=== PATIENT | male | born 1960 | race Two or more races ===

== ENCOUNTER 2024-06-01 13:59 | Inpatient (IN) | payer OTHER ==
[~2024-06-01] VITALS: Ht 162.6 cm; Wt 61.7 kg
[2024-06-01 14:55] LABS: BASOPHILS # (AUTO) 0.2 K/uL (0.0-0.2); BASOPHILS % (AUTO) 3.2 % (0.0-2.0); EOSINOPHILS # (AUTO) 0.4 K/uL (0.0-0.7); EOSINOPHILS % (AUTO) 6.4 % (0.0-6.0); HEMATOCRIT 38 % (39-51); HEMOGLOBIN 12.8 g/dL (13.5-17.5); MEAN CORPUSCULAR HEMOGLOBIN 30 PG (26.0-33.0); MEAN CORPUSCULAR HGB CONC 34 g/dl (31.0-36.0); MEAN CORPUSCULAR VOLUME 88 fL (80-96); MONOCYTES # (AUTO) 0.5 K/uL (0.1-1.30); MONOCYTES % (AUTO) 8.6 % (2.0-12.0); NEUTROPHILS # (AUTO) 3.6 K/uL (1.8-8.9); NEUTROPHILS % (AUTO) 64.8 % (43.0-81.0); PLATELET COUNT (AUTO) 241 K/uL (150-450); RED BLOOD CELL COUNT(AUTO) 4.32 MIL/uL (4.5-6.0); RED CELL DISTRIBUTION WIDTH 15.1 % (11.5-15.0); WHITE BLOOD COUNT (AUTO) 5.6 K/uL (4.3-11.0)
[2024-06-01 15:09] LABS: APPEARANCE,URINE CLEAR (CLEAR); BILIRUBIN,URINE 3+ (NEGATIVE); BLOOD, URINE TRACE-INTA Ery/uL (NEGATIVE); COLOR,URINE YELLOW (YELLOW); KETONES,URINE NEGATIVE (NEGATIVE); LEUKOCYTE ESTERASE ,URINE NEGATIVE (NEGATIVE); NITRITE, URINE NEGATIVE (NEGATIVE); PH,URINE 5.5 (5.0-8.0); PROTEIN,URINE 2+ mg/dl (NEGATIVE); UGLUCOSE 3+ mg/dL (NEGATIVE); UROBILINOGEN,URINE 0.2 EU/dL (0.2)
[2024-06-01 15:16] LABS: ALBUMIN 3.4 g/dL (3.4-5.0); BILIRUBIN,TOTAL 10.8 mg/dL (0.2-1.0); CALCIUM, SERUM 9.5 mg/dL (8.5-10.1); CREATININE 1.9 mg/dL (0.6-1.3); LACTIC ACID 0.6 mmol/L (0.4-2.0); TOTAL PROTEIN, SERUM 8.1 g/dL (6.4-8.2)
[2024-06-01 15:27] LABS: INR 0.97 (0.91-1.10); PARTIAL THROMBOPLASTIN TIME 25.5 SEC (24.3-34.3); PROTHROMBIN TIME 10.3 SECS (9.2-11.1)
[2024-06-01 16:16] LABS: ADD URINE CULTURE NO; BACTERIA,URINE 1+ /HPF (None Seen); RBC,URINE 0-2 /HPF (0-2); SQUAMOUS EPITHELIAL CELL,UR Rare /HPF (None Seen); WBC,URINE NONE SEEN /HPF (0-3)
[2024-06-01] MEDS ORDERED: FERR325T28 GT (16:50)
[2024-06-01] MEDS ORDERED: GLIM4TAB37 PO (16:50)
[2024-06-01] MEDS ORDERED: AMLO5TAB4 PO (16:50)
[2024-06-01] MEDS ORDERED: MULT-754 PO (16:50)
[2024-06-01] MEDS ORDERED: DAPA10TA PO (16:50)
[2024-06-01] MEDS ORDERED: CHOL100062 PO (16:50)
[2024-06-01] MEDS ORDERED: IOHEXOL-300 100 ML VIAL IV ONE (17:06)
[2024-06-01] MEDS ORDERED: IV NS 0.9% 250 ML IV ONE (17:06)
[2024-06-01 22:30] VITALS: BP 145/89; TEMP 97.5; O2SAT 96
[2024-06-01] MEDS ORDERED: Z GUARD REMEDY 4 OZ OINT TP PRN (22:30)
[2024-06-01] MEDS: BLOOD SUGAR DIAGNOSTIC 1 EACH STRIP IN SCH (23:30)
[2024-06-01] MEDS: ONDANSETRON HCL/PF 4 MG/2 ML VIAL IVP PRN (23:30)
[2024-06-01] MEDS ORDERED: DEXTROSE 50%-WATER 50 ML DISP.SYRIN IV PRN (23:30)
[2024-06-01] MEDS: IV NS 0.9% 1,000 ML IV PRN (23:30)
[2024-06-02 00:01] VITALS: BP 152/85; TEMP 97.9; O2SAT 97
[2024-06-02] MEDS: INSULIN REGULAR, HUMAN 100 UNIT/ML 3 ML VIAL SQ PRN (00:20)
[2024-06-02 04:06] VITALS: BP 119/75; TEMP 98.2; O2SAT 96
[2024-06-02 06:24] LABS: BASOPHILS # (AUTO) 0.1 K/uL (0.0-0.2); BASOPHILS % (AUTO) 1.5 % (0.0-2.0); EOSINOPHILS # (AUTO) 0.3 K/uL (0.0-0.7); EOSINOPHILS % (AUTO) 5.5 % (0.0-6.0); HEMATOCRIT 35 % (39-51); HEMOGLOBIN 11.8 g/dL (13.5-17.5); LYMPHOCYTES # (AUTO) 0.7 K/uL (0.8-4.8); LYMPHOCYTES % (AUTO) 12.9 % (20.0-44.0); MEAN CORPUSCULAR HEMOGLOBIN 29 PG (26.0-33.0); MEAN CORPUSCULAR HGB CONC 34 g/dl (31.0-36.0); MEAN CORPUSCULAR VOLUME 88 fL (80-96); MONOCYTES # (AUTO) 0.4 K/uL (0.1-1.30); MONOCYTES % (AUTO) 8.7 % (2.0-12.0); NEUTROPHILS # (AUTO) 3.7 K/uL (1.8-8.9); NEUTROPHILS % (AUTO) 71.4 % (43.0-81.0); PLATELET COUNT (AUTO) 207 K/uL (150-450); RED CELL DISTRIBUTION WIDTH 15.3 % (11.5-15.0); WHITE BLOOD COUNT (AUTO) 5.2 K/uL (4.3-11.0)
[2024-06-02 06:57] LABS: CHOLESTEROL 230 mg/dL (<200); HDL CHOLESTEROL 18 mg/dL (40-60); LDL 146 mg/dL (0-99); TRIGLYCERIDES 371 mg/dL (30-150)
[2024-06-02 07:04] LABS: ALANINE AMINOTRANSFERASE 355 U/L (12-78); ALBUMIN 3.1 g/dL (3.4-5.0); ALKALINE PHOSPHATASE 444 U/L (46-116); AMYLASE 220 U/L (25-115); ASPARTATE AMINOTRANSFERASE 149 U/L (15-37); BILIRUBIN,DIRECT 8.4 mg/dL (0.0-0.2); BILIRUBIN,TOTAL 10.4 mg/dL (0.2-1.0); CALCIUM, SERUM 9.2 mg/dL (8.5-10.1); CARBON DIOXIDE 24 mmol/L (21-32); CHLORIDE 106 mmol/L (98-107); CREATININE 1.7 mg/dL (0.6-1.3); GLUCOSE 234 mg/dL (74-106); LIPASE 318 U/L (16-77); MAGNESIUM 2.7 mg/dL (1.8-2.4); NT-PRO BNP 206 pg/mL (0-125); PHOSPHORUS 4.3 mg/dL (2.5-4.9); SODIUM SERUM 141 mmol/L (136-145); TOTAL PROTEIN, SERUM 7.3 g/dL (6.4-8.2); UREA NITROGEN, BLOOD 39 mg/dL (7-18)
[2024-06-02 08:00] VITALS: BP 148/88; TEMP 98.2; O2SAT 98
[2024-06-02] MEDS: PANTOPRAZOLE 40 MG VIAL IV SCH (08:56)
[2024-06-02] MEDS: IV NS 0.9% 1,000 ML IV PRN (15:18)
[2024-06-02 16:00] VITALS: BP 159/83; TEMP 98.2; O2SAT 97
[2024-06-02 20:00] VITALS: BP 160/87; TEMP 97.7; O2SAT 97
[2024-06-03] VITALS (7 sets, daily range): BP systolic 126–168; BP diastolic 78–91; TEMP 97.7–97.9; O2SAT 94–98
[2024-06-03 07:21] LABS: BASOPHILS # (AUTO) 0.1 K/uL (0.0-0.2); BASOPHILS % (AUTO) 2.1 % (0.0-2.0); EOSINOPHILS # (AUTO) 0.4 K/uL (0.0-0.7); EOSINOPHILS % (AUTO) 8.5 % (0.0-6.0); HEMATOCRIT 34 % (39-51); HEMOGLOBIN 11.1 g/dL (13.5-17.5); LYMPHOCYTES # (AUTO) 0.7 K/uL (0.8-4.8); MEAN CORPUSCULAR HEMOGLOBIN 29 PG (26.0-33.0); MEAN CORPUSCULAR HGB CONC 33 g/dl (31.0-36.0); MEAN CORPUSCULAR VOLUME 88 fL (80-96); MONOCYTES # (AUTO) 0.4 K/uL (0.1-1.30); MONOCYTES % (AUTO) 9.5 % (2.0-12.0); NEUTROPHILS # (AUTO) 2.7 K/uL (1.8-8.9); NEUTROPHILS % (AUTO) 62.9 % (43.0-81.0); PLATELET COUNT (AUTO) 199 K/uL (150-450); RED BLOOD CELL COUNT(AUTO) 3.84 MIL/uL (4.5-6.0); RED CELL DISTRIBUTION WIDTH 15.3 % (11.5-15.0); WHITE BLOOD COUNT (AUTO) 4.2 K/uL (4.3-11.0)
[2024-06-03 08:31] LABS: ALBUMIN 2.7 g/dL (3.4-5.0); BILIRUBIN,TOTAL 10.4 mg/dL (0.2-1.0); CALCIUM, SERUM 8.8 mg/dL (8.5-10.1); CREATININE 1.5 mg/dL (0.6-1.3); MAGNESIUM 2.5 mg/dL (1.8-2.4); PHOSPHORUS 3.7 mg/dL (2.5-4.9); POTASSIUM 3.9 mmol/L (3.5-5.1); TOTAL PROTEIN, SERUM 6.6 g/dL (6.4-8.2)
[2024-06-03 09:17] LABS: THYROID STIMULATING HORMONE 1.91 uIU/mL (0.358-3.74)
[2024-06-03] MEDS ORDERED: DIATR MEGLU/DIATRIZOATE SODIUM 30 ML BOTTLE (GASTROGRAPHIN) ONE (11:20)
[2024-06-03] MEDS: METOPROLOL TARTRATE 25 MG TABLET PO SCH (14:30)
[2024-06-04] VITALS: BP 139/76; TEMP 97.9; O2SAT 97
[2024-06-04 06:37] LABS: BASOPHILS # (AUTO) 0.1 K/uL (0.0-0.2); BASOPHILS % (AUTO) 2.1 % (0.0-2.0); EOSINOPHILS # (AUTO) 0.4 K/uL (0.0-0.7); EOSINOPHILS % (AUTO) 8.6 % (0.0-6.0); HEMATOCRIT 33 % (39-51); LYMPHOCYTES # (AUTO) 0.8 K/uL (0.8-4.8); LYMPHOCYTES % (AUTO) 18.4 % (20.0-44.0); MEAN CORPUSCULAR HEMOGLOBIN 29 PG (26.0-33.0); MEAN CORPUSCULAR HGB CONC 33 g/dl (31.0-36.0); MEAN CORPUSCULAR VOLUME 88 fL (80-96); MONOCYTES # (AUTO) 0.5 K/uL (0.1-1.30); MONOCYTES % (AUTO) 10.5 % (2.0-12.0); NEUTROPHILS # (AUTO) 2.8 K/uL (1.8-8.9); NEUTROPHILS % (AUTO) 60.4 % (43.0-81.0); PLATELET COUNT (AUTO) 192 K/uL (150-450); RED BLOOD CELL COUNT(AUTO) 3.77 MIL/uL (4.5-6.0); RED CELL DISTRIBUTION WIDTH 15.7 % (11.5-15.0); WHITE BLOOD COUNT (AUTO) 4.6 K/uL (4.3-11.0)
[2024-06-04 06:48] LABS: ALBUMIN 2.5 g/dL (3.4-5.0); BILIRUBIN,TOTAL 10.9 mg/dL (0.2-1.0); CALCIUM, SERUM 8.7 mg/dL (8.5-10.1); CREATININE 1.3 mg/dL (0.6-1.3); MAGNESIUM 2.2 mg/dL (1.8-2.4); PHOSPHORUS 2.5 mg/dL (2.5-4.9); POTASSIUM 4.2 mmol/L (3.5-5.1); TOTAL PROTEIN, SERUM 6.3 g/dL (6.4-8.2)
[2024-06-04 08:29] VITALS: BP 140/64; TEMP 98.4; O2SAT 98
[2024-06-04] MEDS: PANTOPRAZOLE 40 MG TABLET.DR PO SCH (09:30)
[2024-06-04] MEDS: TRIAMCINOLONE ACETONIDE 0.1% CR 15 GM TUBE TP SCH (11:16)
[2024-06-04 12:08] VITALS: BP 164/90; TEMP 98.1; O2SAT 99
[2024-06-04] MEDS ORDERED: IOHEXOL-300 100 ML VIAL IV ONE (13:43)
[2024-06-04] MEDS ORDERED: IV NS 0.9% 250 ML IV ONE (13:43)
[2024-06-04 16:15] VITALS: BP 157/84; TEMP 97.5; O2SAT 99
[2024-06-04 20:27] VITALS: BP 146/81; TEMP 97.5; O2SAT 98
[2024-06-04 21:43] VITALS: BP 146/81
[2024-06-04] MEDS ORDERED: ONDA4VIA23 IVP (23:13)
[2024-06-04] MEDS ORDERED: METO25TA20 PO (23:13)
[2024-06-04] MEDS ORDERED: PANT40TA49 PO (23:13)
[2024-06-04] MEDS ORDERED: GADOTERATE MEGLUMINE 10 MMOL/20 ML VIAL IV ONE (23:59)
[2024-06-05 07:09] LABS: HEPATITIS B SURFACE AB Reactive (.)
[2024-06-05 08:09] LABS: AFP, TUMOR MARKER 11.2 ng/mL (0.0-8.4); CARBOHYDRATE AG 19-9 95 U/mL (0-35); FOLIC ACID 15.3 ng/mL (>3.0); IMMUNOGLOBULIN A, SERUM 424 mg/dL (61-437); IMMUNOGLOBULIN G, SERUM 1154 mg/dL (603-1613); IMMUNOGLOBULIN M, SERUM 103 mg/dL (20-172)
[2024-06-05 10:09] LABS: *SPE A/G RATIO 0.9 (0.7-1.7); *SPE ALBUMIN 2.8 g/dL (2.9-4.4); *SPE ALPHA-1-GLOBULIN 0.3 g/dL (0.0-0.4); *SPE ALPHA-2-GLOBULIN 0.8 g/dL (0.4-1.0); *SPE BETA GLOBULIN 1.3 g/dL (0.7-1.3); *SPE GLOBULIN, TOTAL 3.2 g/dL (2.2-3.9); *SPE M-SPIKE Not Observed g/dL (Not Observed); *SPEGAMMA GLOBULIN 0.9 g/dL (0.4-1.8); FREE KAPPA LT CHAINS SERUM 43.7 mg/L (3.3-19.4); FREE LAMBDA LT CHAIN SERUM 47.1 mg/L (5.7-26.3); KAPPA/LAMBDA RATIO SERUM 0.93 (0.26-1.65)
== END 2024-06-05 | disposition short-term general hospital (02) | DRG 281 ==
LOC: ER 14:32 → TELE 21:31 → MED 06-04 13:48
PROVIDERS: ADMIT Nurse Practitioner Family; ATTEND Nurse Practitioner Family
DX: C22.1 Intrahepatic bile duct carcinoma (principal); N17.0 Acute kidney failure with tubular necrosis; K85.90 Acute pancreatitis without necrosis or infection, unspecified; E88.09 Other disorders of plasma-protein metabolism, not elsewhere classified; D63.8 Anemia in other chronic diseases classified elsewhere; I50.9 Heart failure, unspecified; I13.0 Hypertensive heart and chronic kidney disease with heart failure and stage 1 through stage 4 chronic kidney disease, or unspecified chronic kidney disease; K66.8 Other specified disorders of peritoneum; R16.0 Hepatomegaly, not elsewhere classified; R55 Syncope and collapse; R17 Unspecified jaundice; E11.22 Type 2 diabetes mellitus with diabetic chronic kidney disease; N18.9 Chronic kidney disease, unspecified; E78.5 Hyperlipidemia, unspecified; Z88.0 Allergy status to penicillin; Z90.49 Acquired absence of other specified parts of digestive tract; K31.89 Other diseases of stomach and duodenum; R74.01 Elevation of levels of liver transaminase levels; Z86.19 Personal history of other infectious and parasitic diseases; Z79.84 Long term (current) use of oral hypoglycemic drugs; K83.8 Other specified diseases of biliary tract
CPT/HCPCS: 36415; 70450-TC; 71045-TC; 71260-TC; 74181-TC; 74182-TC; 76705-TC; 80048-TC; 80053-TC; 80061-TC; 80076-TC; 81001; 82105; 82140-TC; 82150-TC; 82378; 82607-TC; 82728-TC; 82784; 82962-TC; 83540-TC; 83605-TC; 83690-TC; 83735-TC; 83880; 84100-TC; 84155; 84165; 84443-TC; 84484-TC; 85025-TC; 85730-TC; 86301; 86334; 86706; 86803; 87340; 93307-TC; 93880-TC; 97110-TC; 97116-TC; 97530-TC; A4223; A9575; G0378; J1815; J2405; J2470; J7030; J7050; Q9963; Q9967